=== PATIENT | female | born 1975 | race Caucasian/White ===

== ENCOUNTER 2019-12-11 04:31 | Emergency (ER) | payer OTHER ==
[~2019-12-11] VITALS: Ht 162.6 cm; Wt 99.8 kg
[2019-12-11] MEDS ORDERED: IBUPROFEN 800800 M1 PO (04:44)
[2019-12-11] MEDS ORDERED: NORCO 5-325 TA1 EAC1 PO (05:24)
[2019-12-11 05:33] VITALS: BP 120/71
== END 2019-12-11 05:34 | disposition home or self-care (01) ==
LOC: ER 04:31
DX: M25.531 Pain in right wrist (principal); S00.12XA Contusion of left eyelid and periocular area, initial encounter; S00.11XA Contusion of right eyelid and periocular area, initial encounter; Z88.6 Allergy status to analgesic agent; W50.0XXA Accidental hit or strike by another person, initial encounter; Y93.89 Activity, other specified; Y92.89 Other specified places as the place of occurrence of the external cause; Y99.8 Other external cause status

== ENCOUNTER 2020-12-12 20:10 | Emergency (ER) | payer OTHER ==
[~2020-12-12] VITALS: Ht 162.6 cm; Wt 113.4 kg
[~2020-12-12 20:10] MED LIST: IBUPROFEN 800800 M1 PO; NORCO 5-325 TA1 EAC1 PO
[2020-12-12 20:22] VITALS: BP 145/90
[2020-12-12] MEDS ORDERED: ERYTHROMYCIN E3.5 G2 OPHTHALMIC (20:43)
== END 2020-12-12 21:20 | disposition home or self-care (01) ==
LOC: ER 20:10
DX: H10.33 Unspecified acute conjunctivitis, bilateral (principal); A48.8 Other specified bacterial diseases; E05.90 Thyrotoxicosis, unspecified without thyrotoxic crisis or storm; Z88.5 Allergy status to narcotic agent